=== PATIENT | female | born 1950 | race Caucasian/White ===

== ENCOUNTER 2016-03-04 12:55 | Emergency (ER) | payer OTHER ==
[~2016-03-04] VITALS: Ht 154.9 cm; Wt 72.6 kg
--- NOTE | ~2016-03-04 | EKG ---
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
[~2016-03-04 12:55] MED LIST: ASPIRIN EC81 M1 PO; ATIVAN0.5 MG PO; BENTYL 10 MG CA10 MG PO; FISHOIL; FLEXERIL PO; LEVOTHROID88 MCG; LORTAB 7.5/5001 TA3; LOVASTAT20 PO; PRILOSEC 20 MG20 MG PO; PROAIR HFA8.5 GM; SYMBICORT160 MCG/4.
[2016-03-04 13:35] LABS: ABSOLUTE NEUTROPHILS 7.4 thou/uL (1.4-8.2); BASOPHILS 0.6 % (0.0-2.0); EOSINOPHILS 1.3 % (0.0-3.0); HEMOGLOBIN 13.4 gm/dL (12.0-15.0); LYMPHOCYTES 18.4 % (24.0-44.0); MCH 32.4 pg (26.0-34.0); MCHC 33.5 % (28.0-37.0); MCV 96.5 fL (80.0-100.0); MONOCYTES 8.9 % (1.0-8.0); PLATELET COUNT 211 thou/uL (150-400); POLYS 70.8 % (36.0-66.0); RBC 4.15 mil/uL (4.20-5.00); RDW 12.9 % (10.5-14.5); WBC 10.4 thou/uL (4.0-11.0)
[2016-03-04 13:37] LABS: MANUAL DIFF NO
[2016-03-04 13:38] LABS: ANION GAP 6 mmol/L (7-16); BUN 20 mg/dL (7-18); CALCIUM 9.1 mg/dL (8.5-10.1); CHLORIDE 102 mmol/L (98-107); CO2 32 mmol/L (21-32); GLUCOSE 124 mg/dL (70-99); POTASSIUM 3.9 mmol/L (3.5-5.1); SODIUM 140 mmol/L (136-145)
[2016-03-04 13:55] LABS: ALBUMIN 3.8 g/dL (3.4-5.0); ALKALINE PHOSPHATASE 65 U/L (46-116); SGOT 19 U/L (15-37); SGPT 22 U/L (30-65); TOTAL BILIRUBIN 0.5 mg/dL (<0.1-1.0); TOTAL PROTEIN 7.7 g/dL (6.4-8.2); TROPONIN-I < 0.04 ng/mL (<0.04-0.07)
[2016-03-04] MEDS ORDERED: UNICOMPLEX M TA1 TA1 PO (15:06)
[2016-03-04] MEDS ORDERED: MAGOX 400400 MG PO (15:06)
[2016-03-04 15:11] LABS: URINE BILIRUBIN NEGATIVE (Negative); URINE BLOOD NEGATIVE (Negative); URINE COLOR YELLOW; URINE GLUCOSE-RANDOM* NEGATIVE (Negative); URINE KETONES NEGATIVE (Negative); URINE LEUKOCYTES-REFLEX NEGATIVE (Negative); URINE PROTEIN (DIPSTICK) NEGATIVE (Negative); URINE SPECIFIC GRAVITY <= 1.005 (1.003-1.035); URINE UROBILINOGEN 0.2 E.U./dl (0.2-1.0)
[2016-03-04] MEDS ORDERED: CARAFATE 1 GM TA1 G1 PO (15:56)
[2016-03-04] MEDS ORDERED: PANTOPRAZOLE SO40 M1 PO (15:56)
[2016-03-04 16:19] VITALS: BP 140/55
== END 2016-03-04 16:20 | disposition home or self-care (01) ==
LOC: ER 12:55
PROVIDERS: Emergency Medicine; Physician Assistant
DX: R07.89 Other chest pain (principal); R10.13 Epigastric pain; Z90.710 Acquired absence of both cervix and uterus; Z90.49 Acquired absence of other specified parts of digestive tract; Z88.1 Allergy status to other antibiotic agents; Z88.5 Allergy status to narcotic agent; Z88.2 Allergy status to sulfonamides; Z88.8 Allergy status to other drugs, medicaments and biological substances

== ENCOUNTER → 2017-03-30 | Outpatient (CLI) | payer OTHER ==
[~2017-03-30] MED LIST changes: +CARAFATE 1 GM TA1 G1 PO; +MAGOX 400400 MG PO; +PANTOPRAZOLE SO40 M1 PO; +UNICOMPLEX M TA1 TA1 PO
== END ==
LOC: RAD 10:31
DX: M48.02 Spinal stenosis, cervical region (principal); M43.22 Fusion of spine, cervical region

== ENCOUNTER → 2017-07-08 | Outpatient (CLI) | payer OTHER | LOC: ULTRA 06:58 | DX: R22.31 Localized swelling, mass and lump, right upper limb (principal) ==

== ENCOUNTER → 2018-01-07 | Outpatient (CLI) | payer OTHER | LOC: RAD 01:52 | DX: Z12.31 Encounter for screening mammogram for malignant neoplasm of breast (principal) ==

== ENCOUNTER → 2018-12-27 | Outpatient (CLI) | payer OTHER | LOC: RAD 08:57 | DX: M47.22 Other spondylosis with radiculopathy, cervical region (principal); M50.83 Other cervical disc disorders, cervicothoracic region; M50.121 Cervical disc disorder at C4-C5 level with radiculopathy ==

== ENCOUNTER → 2019-01-10 | Outpatient (CLI) | payer OTHER | LOC: RAD 09:29 | DX: Z12.31 Encounter for screening mammogram for malignant neoplasm of breast (principal) ==

== ENCOUNTER → 2019-01-19 | Outpatient (CLI) | payer OTHER | LOC: MRI 09:28 | DX: M47.22 Other spondylosis with radiculopathy, cervical region (principal); M50.11 Cervical disc disorder with radiculopathy, high cervical region; M48.02 Spinal stenosis, cervical region; M25.78 Osteophyte, vertebrae; Z98.890 Other specified postprocedural states ==

== ENCOUNTER → 2019-11-16 | Outpatient (CLI) | payer OTHER ==
[2019-11-16 13:42] LABS: CREATININE 0.8 mg/dL (0.6-1.0)
== END ==
LOC: MRI 12:42
PROVIDERS: ATTEND Neurological Surgery
DX: M47.23 Other spondylosis with radiculopathy, cervicothoracic region (principal); M48.03 Spinal stenosis, cervicothoracic region; M25.78 Osteophyte, vertebrae

== ENCOUNTER → 2020-01-12 | Outpatient (CLI) | payer OTHER | LOC: RAD 13:57 | PROVIDERS: ATTEND Internal Medicine | DX: Z12.31 Encounter for screening mammogram for malignant neoplasm of breast (principal) ==

== ENCOUNTER → 2020-11-05 | Outpatient (CLI) | payer OTHER | LOC: MRI 11-02 14:18 | PROVIDERS: ATTEND Neurological Surgery | DX: M50.121 Cervical disc disorder at C4-C5 level with radiculopathy (principal); M48.02 Spinal stenosis, cervical region ==

== ENCOUNTER → 2021-01-11 | Outpatient (CLI) | payer OTHER | LOC: RAD 10:30 → BC 17:40 | PROVIDERS: ATTEND Internal Medicine | DX: Z12.31 Encounter for screening mammogram for malignant neoplasm of breast (principal); N63.10 Unspecified lump in the right breast, unspecified quadrant ==